=== PATIENT | male | born 1975 | race Caucasian/White ===

== ENCOUNTER 2016-10-31 23:08 | Emergency (ER) | payer BC, OTHER ==
[2016-10-31 23:38] LABS: Hematocrit 46.5 % (42.0-52.0); Mean Cell Volume 84.2 fl (78-100); Mean Corpuscular Hgb Conc 34.4 g/dl (32-36); Mean Platelet Volume 9.5 fl (6.0-9.5); Neutrophil # 3.7 K/mm3 (1.3-6.0); Neutrophil % 49.3 % (42-75.0); Platelet Count 325 K/mm3 (150-450); Red Blood Count 5.52 M/mm3 (4.7-6.0); White Blood Count 7.5 K/mm3 (4.0-10.5)
[2016-10-31 23:49] LABS: Prothrombin Time (Patient) 10.6 Seconds (9.4-11.4)
[2016-10-31 23:50] LABS: INR 1.02 INR (0.90-1.10); Partial Thrombolplastin Time 26.8 Seconds (24-32)
[2016-10-31] MEDS ORDERED: SUCRALFATE 1 G/10 ML UDC PO ONE (23:50)
[2016-10-31] MEDS ORDERED: MAG HYDROX/ALUMINUM HYD/SIMETH 30 ML UDC PO ONE (23:50)
[2016-10-31] MEDS ORDERED: LIDOCAINE HCL 20 ML UDC MM ONE (23:50)
[2016-10-31 23:57] LABS: ALT 36 U/L (19-67); AST 16 U/L (0-48); Albumin * 4.2 gm/dl (3.4-5.0); Alkaline Phosphatase * 58 U/L (50-170); Anion Gap 11.5 mmol/L (6.8-13.8); BUN/Creatinine Ratio 10.9 (9.0-21.6); Bilirubin, Total 0.5 mg/dL (0.0-1.1); Blood Urea Nitrogen 11 mg/dL (6-23); Ca. Corrected For Albumin 8.5 mg/dL (8.4-10.2); Carbon Dioxide 30.5 mmol/L (24-32.6); Chloride 103 mmol/L (97-106); Glucose * 106 mg/dL (70-110); Sodium 141 mmol/L (132-142)
[2016-10-31 23:58] LABS: Troponin I Less than 0.017 ng/ml (0.00-0.10)
[2016-11-01] MEDS: NITROGLYCERIN 0.4 MG/TAB BTL SL PRN ×3 (00:11→00:23)
[2016-11-01 00:22] LABS: CKMB 1.6 ng/mL (0.0-9.0); CRP 0.7 mg/dL (0.0-0.9)
--- OUTSIDE RECORDS SUMMARY | 2016-11-01 00:29 | XMS REPORT | Continuity of Care Document ---
:1975 Author Organization [facility] ([facility]) Address [address] [place] [address] Phone [phone] Care Team Providers Name Role Phone Provider, No-Primary Care Primary Care Provider Unavailable Source Comments This disclosure is being made pursuant to the Care Everywhere program, applicable federal and state laws, and may not contain all informaitonavailable regarding this patient.[facility] ([facility]) Active Allergies and Adverse Reactions Not on File Current Medications Not on file Active Problems Not on file Social History Tobacco Use Types Packs/Day Years Used Date Never Assessed Plan of Care Health Maintenance Due Date Last Done Comments Hepatitis B Vaccine (1 of 3 - Primary Series) 1975 Tdap Vaccine 1984 Lipid Disorder Screening 12/21/1991 MMR Vaccine 12/21/1991 Td Vaccine 12/21/1991 Influenza Vaccine: Seasonal (#1) 03/14/2016 Results from Last 3 Months Not on file
--- OUTSIDE RECORDS SUMMARY | 2016-11-01 00:29 | XMS REPORT | Summary of Care ---
:1975 Author Organization [facility] Address [address] [place] [address] Care Team Providers Name Role Phone Physician, Primary Care Primary Care Physician Unavailable Encounter Date(s): 10/07/16 - 10/07/16 [facility] [address] [place], [place] [address] Discharge Diagnosis: Bilateral carpal tunnel syndrome Discharge Disposition: 01 Discharged to Home or Self Care Attending Physician: Sher Villa MD Referring Physician: Unknown Physician Vital Signs Most recent to oldest [Reference Range]: 1 Peripheral Pulse Rate [60-100 bpm] 104 bpm *HI* (10/07/16 9:58 AM) Blood Pressure [90-130/60-90 mmHg] 125/74mmHg (10/07/16 9:58 AM) Mean Arterial Pressure, Cuff 91 mmHg (10/07/16 9:58 AM) Most recent to oldest [Reference Range]: 1 Height/Length Measured 175 cm (10/07/16 9:58 AM) Weight Dosing 103.41 kg1 (10/07/16 10:01 AM) Weight Measured 103.41 kg (10/07/16 9:58 AM) BSA Measured 2.18 m2 (10/07/16 9:58 AM) Body Mass Index Measured 33.77 kg/m2 (10/07/16 9:58 AM) 1Result Comment: This result was because the dosing weight was either not entered or it is>30 days old. This result is based off: Weight Measured October 07, 2016 09:58:00 [employer] by Reny Simpson CMA Problem List Condition Effective Dates Status Health Status Informant Bilateral carpal tunnel Active syndrome(Confirmed) Allergies, Adverse Reactions, Alerts Substance Reaction Severity Status hay fever unknown Active Medications No Known Medications Results No data available for this section Immunizations No data available for this section Procedures No data available for this section Social History No data available for this section Assessment and Plan No data available for this section
[2016-11-01 01:41] VITALS: BP 121/87
--- NOTE | 2016-11-01 01:52 | ERNOTE ---
Chest Pain/Cardiac HPI Date of Service: 11/01/16 Chief Complaint: Chest Pain Time Seen by Provider: 10/31/16 23:37 Source: patient, family Exam Limitations: no limitations Immunizations: IMMUNIZATION HX Immunizations Up to Date No History of Influenza Vaccine No Hx Pneumococcal Vaccination No Allergies/Adverse Reactions: Allergies No Known Allergies Allergy (Verified 10/01/13 08:39) Home Medications: HOME MEDICATIONS Meclizine HCl [Antivert] 25 mg PO QID PRN #30 tablet 10/01/13 [Last Taken Unknown] Aspirin/Calcium Carbonate/Mag [Aspirin Buffered 325 mg Tab] 325 mg PO 10/31/16 [ Last Taken 10/31/16] Narrative: Patient comes to emergency room with complaints of having chest pain mid chest and does not radiates. He has had it for last few days off and on. Feels like a squeezing pain. No palpitations no sweating. At work on Monday he relates he just passed out. N last consciousness. No history of chest pain or palpitations at that time. He's chronic smoker has history of hypertension. Timing: constant Severity/Quality: mild, pressure, tightness Location: substernal, central, left chest Chest Pain Radiation: no radiation Activities at Onset: rest Modifying Factors - Improves: Present: antacids, nothing Modifying Factors - Worsens: Present: nothing Aspirin Treatment Today: 325 mg x 1 Associated Symptoms: Present: denies symptoms, syncope. Absent: headache, dizziness, cough, shortness of breath, diaphoresis, palpitations Prior Chest Pain/Cardiac Workup: Reports: no prior cardiac workup Review of Systems - Review of Systems Constitutional: Present: no symptoms reported EYE: Present: no symptoms reported ENT: Present: no symptoms reported Respiratory: Present: no symptoms reported Cardiology: Present: chest pain, syncope Gastrointestinal/Abdominal: Present: no symptoms reported Genitourinary: Present: no symptoms reported Musculoskeletal: Present: no symptoms reported Skin: Present: no symptoms reported Neurological: Present: no symptoms reported Endocrine: Present: no symptoms reported Hematologic/Lymphatic: Present: no symptoms reported Psych: Present: no symptoms reported All Other Systems: All systems neg except as marked - Patient's Past Medical History Patient History - Medical: GERD Patient History - Cardiac/Respiratory: No pertinent hx Patient History - Cancer: No Hx of Cancer Patient History - Surgical Procedures: Ear Tubes, T & A Patient History - Other: None - Social History Living Situations: home Abuse History: No History of abuse Psych History: No pertinent hx Smoking Status: Current every day smoker Have you smoked in the past 12 months: Yes Do you dip or chew tobacco: No Alcohol Use: none Drug Use: none - Immunizations Immunizations Up to Date: No Hx Pneumococcal Vaccination: No History of Influenza Vaccine: No Physical Exam - Physical Exam General Appearance: Present: wd/wn, alert, no apparent distress Eye Exam: Normal inspection: bilateral Ears, Nose, Throat: Present: normal ENT inspection Neck: Present: normal inspection Respiratory: Present: no respiratory distress, normal breath sounds, no accessory muscle use, chest nontender, lungs clear Cardiovascular/Chest: Present: regular rate, rhythm, no murmur, normal peripheral pulses. Absent: tachycardia, bradycardia, irregularly irregular Gastrointestinal/Abdominal: Present: normal bowel sounds, nontender, soft Back Exam: Present: normal inspection, normal range of motion, no CVA tenderness Extremity Exam: Present: normal inspection, normal range of motion, no edema Neurological Exam: Present: alert, oriented, normal mood/affect, no motor/ sensory deficits, band edger II-XII nml as tested Skin Exam: Present: normal color, warm/dry Lymphatic Exam: Present: no adenopathy ED Progress - Vital Signs Vital Signs: Vital Signs 10/31/16 11/01/16 11/01/16 23:19 00:13 00:25 Temperature 36.7 C Pulse Rate 91 89 90 Respiratory 18 18 18 Rate Blood Pressure 153/101 123/79 123/87 O2 Sat by Pulse 100 96 94 Oximetry 11/01/16 11/01/16 01:00 01:40 Temperature Pulse Rate 88 88 Respiratory 18 18 Rate Blood Pressure 104/67 121/87 O2 Sat by Pulse 94 94 Oximetry - Progress/Reassessment Chief Complaint: Chest Pain Departure - Departure Clinical Impression: Chest pain Qualifiers: Chest pain type: unspecified Qualified Code(s): R07.9 - Chest pain, unspecified Syncope Qualifiers: Syncope type: unspecified Qualified Code(s): R55 - Syncope and collapse Disposition: Home self-care Condition: Stable Instructions: Nonspecific Chest Pain, [id number] Additional Instructions: He used admission today. Please decrease or quit smoking. Push fluids. Take aspirin 81 mg daily. May use omeprazole 20 mg by mouth daily. Follow-up with your primary-care physician tomorrow for further evaluation and treatment. Dizziness lightheadedness palpitations chest pain symptoms recur please return back to emergency room
== END 2016-11-01 02:06 | disposition home or self-care (01) ==
LOC: ER 23:08
DX: R07.9 Chest pain, unspecified (principal); R55 Syncope and collapse; F17.210 Nicotine dependence, cigarettes, uncomplicated; Z53.29 Procedure and treatment not carried out because of patient's decision for other reasons